=== PATIENT | female | born 1970 | race Caucasian/White ===

== ENCOUNTER → 2017-01-02 | Outpatient (REF) | payer OTHER | LOC: M SFHCLERA 12:18 | PROVIDERS: ATTEND Nurse Practitioner Family | DX: J02.9 Acute pharyngitis, unspecified (principal) ==

== ENCOUNTER → 2018-08-27 | Outpatient (CLI) | payer OTHER ==
--- NOTE | 2018-08-28 02:40 | REP ---
Clinical: Chronic cough . Comparison: 02/27/2014 . Technique: PA and lateral. Findings: The mediastinum and cardiac silhouette are normal. The lung anguiano are clear and without acute consolidation, effusion, or pneumothorax. The skeletal structures are intact and normal. Impression: 1. No acute cardiopulmonary process. Electronically Signed by Noel Jordan MD 08/28/2018 02:32 A
== END ==
LOC: M WUC 09:39
PROVIDERS: ATTEND Physician Assistant
DX: R05 Cough (principal)

== ENCOUNTER → 2020-07-13 | Outpatient (CLI) | payer OTHER ==
--- NOTE | 2020-07-13 08:00 | PFTRPT ---
Height: 65.00 Inches Weight: 197.00 Lbs BSA: 1.97 Diagnosis: J45.40 DATE: 07/13/2020 ORDERING PHYSICIAN: Terri Yao NP Pre and post bronchodilator studies have excellent technical quality. Forced vital capacity is normal. FEV1 just out of proportion. Obstructive index is therefore reduced. Expiratory limit of the flow-volume loop does suggest some degree of flow rate limitation. No significant bronchodilator response is identified. Total lung capacity is normal. Residual volume is in proportion. Diffusing capacity is normal. Hemoglobin is acceptable at 13.1. Airway resistance and conductance are normal. IMPRESSION: Mild obstructive ventilatory impairment. Please correlate clinically. MTDD
== END ==
LOC: M CARPUL 07:14
PROVIDERS: ATTEND Nurse Practitioner Family
DX: J45.40 Moderate persistent asthma, uncomplicated (principal); R91.8 Other nonspecific abnormal finding of lung field

== ENCOUNTER → 2022-09-17 | Outpatient (CLI) | payer OTHER ==
[~2022-09-17] MED LIST: GASTROGRAFIN SOLUTION 30ML As Ordered ONE; ISOVUE-370 76% 100ML VIAL As Ordered ONE
== END ==
LOC: M RAD 11:51
PROVIDERS: ATTEND Family Medicine
DX: R91.8 Other nonspecific abnormal finding of lung field (principal)

== ENCOUNTER → 2025-03-17 | Outpatient (CLI) | payer BC, OTHER | LOC: M RAD 12:46 | PROVIDERS: ATTEND Internal Medicine Pulmonary Disease | DX: J43.9 Emphysema, unspecified (principal); J98.11 Atelectasis; R91.1 Solitary pulmonary nodule ==